=== PATIENT | female | born 1970 | race Caucasian/White ===

== ENCOUNTER 2019-03-27 18:50 | Emergency (ER) | payer OTHER ==
[~2019-03-27] VITALS: Ht 175.3 cm; Wt 73.9 kg
[~2019-03-27 18:50] MED LIST: ALBU90OI; HYDACE5 PO; POTCHL10ER PO
== END 2019-03-27 20:48 | disposition home or self-care (01) ==
LOC: ER 18:50
DX: R60.0 Localized edema (principal); M79.661 Pain in right lower leg; Z87.891 Personal history of nicotine dependence
CPT/HCPCS: 73590; 93971; 99284-25